=== PATIENT | female | born 1985 | race Two or more races ===

== ENCOUNTER → 2024-05-02 | Outpatient (CLI) | payer MEDICAID, SELFPAY ==
--- NOTE | 2024-05-02 13:15 | XR_ITS ---
Examination: Diagnostic digital mammography, bilateral Computer aided detection 3-D breast Tomosynthesis, bilateral Date and time of exam: May 02, 2024 1313 hours INDICATIONS: Left breast carcinoma diagnosis 2020 post lumpectomy radiation therapy chemotherapy Technique: Nonmagnified MLO, CC views of the breasts to been obtained, reconstructed from 3-D Tomosynthesis images. R2 computer aided detection program utilized for evaluation of suspicious masses and/or abnormal calcifications. 3-D Tomosynthesis images obtained. Findings: The breasts are heterogeneously dense, which may obscure small masses Surgical clips and scar formation upper outer left breast again noted Surgical clips upper outer right breast again depicted 5 mm nodule 12:00 position left breast posterior depth IMPRESSION: BI-RADS Category 0: Incomplete: Need additional imaging evaluation 5 mm nodule 12:00 position left breast posterior depth, recommend follow-up spot tomographic views of this nodule as well as bilateral breast sonography to complete the workup
== END | disposition home or self-care (01) ==
PROVIDERS: PCP Physician Assistant; Referring Provider Internal Medicine Hematology & Oncology; Visit Provider Internal Medicine Hematology & Oncology
DX: R92.8 Other abnormal and inconclusive findings on diagnostic imaging of breast (principal); N63.25 Unspecified lump in the left breast, overlapping quadrants; C50.412 Malignant neoplasm of upper-outer quadrant of left female breast
CPT/HCPCS: 77062; 77066; G0279

== ENCOUNTER → 2024-06-15 | Outpatient (CLI) | payer MEDICAID, SELFPAY ==
--- NOTE | 2024-06-15 10:15 | XR_ITS ---
Examination: Breast ultrasound complete, bilateral Date and time of exam: June 15, 2024 1015 hours INDICATIONS: Personal history breast cancer, postlumpectomy 2020, mammogram May 02, 2024 5 mm nodule 12:00 position left breast posterior depth Technique: Real-time grayscale ultrasonographic imaging bilateral breasts, including all 4 quadrants as well as nipple retroareolar and axillary regions. Findings: No cystic or solid mass involving either breast IMPRESSION: BI-RADS Category 1: Negative study
--- NOTE | 2024-06-15 11:15 | XR_ITS ---
Examination: Diagnostic digital mammography, unilateral, left Computer aided detection 3-D breast Tomosynthesis, unilateral Date and time of exam: June 15, 2024 1004 hours INDICATIONS: Mammogram 12/01/2023 5 mm nodule 12:00 position left breast Technique: Nonmagnified MLO, CC views of the left breast have been obtained, reconstructed from 3-D Tomosynthesis images. R2 computer aided detection program utilized for evaluation of suspicious masses and/or abnormal calcifications. 3-D Tomosynthesis images obtained. Findings: The breast is heterogeneously dense, which may obscure small masses Left breast sonogram today demonstrates no cystic or solid mass No suspicious mass is depicted on the spot compression views Impression: BI-RADS category 2: Benign findings Return to yearly follow-up mammography
== END | disposition home or self-care (01) ==
LOC: CDIM 09:55
PROVIDERS: PCP Family Medicine; Referring Provider Internal Medicine Hematology & Oncology; Visit Provider Internal Medicine Hematology & Oncology
DX: R92.322 Mammographic fibroglandular density, left breast (principal); Z85.3 Personal history of malignant neoplasm of breast
CPT/HCPCS: 76641; 77061; 77065; G0279

== ENCOUNTER → 2024-07-21 | Outpatient (CLI) | payer MEDICAID, SELFPAY ==
[2024-07-20 16:53] LABS: HCG Qualitative,Urine Negative
--- NOTE | 2024-07-21 14:00 | XR_ITS ---
Examination: CT chest with intravenous contrast CT abdomen with intravenous contrast CT pelvis with intravenous contrast 2-D coronal and sagittal reconstructions Time of exam: July 21, 2024 at 1424 hours INDICATIONS: Diagnosis malignant neoplasm upper outer quadrant left female breast, lumpectomy 2020, restaging CTDI: vol (mGy) : 5.09 DLP: (mGycm): 338 Technique: Multiple axial images of the chest, abdomen and pelvis with intravenous contrast, 3.0 mm slice thickness. Images obtained post intravenous injection Isovue 370 60 cc. 2-D sagittal and coronal reconstructions. Low dose protocols were performed. One or more of the following dose reduction techniques were used; automated exposure control, adjustment of the mA and/or KV according to patient size, use of iterative reconstruction technique. Findings: Left axillary surgical clips No thoracic aortic aneurysm dilatation Pulmonary artery segments are not enlarged No paratracheal tracheobronchial or bronchopulmonary adenopathy 3 mm, 2 mm pulmonary nodules anterior segment right upper lobe No pneumonia or pulmonary edema Surgical clips 8 mm left axillary lymph node No pneumonia or pulmonary edema No visualized liver or splenic lesion No gallstones No pancreatic or adrenal mass No renal or ureteral calculi No abdominal or pelvic lymphadenopathy Anteverted uterus Multiple left ovarian follicular cyst Urinary bladder intact Moderate osteopenia IMPRESSION: Subcentimeter noncalcified pulmonary nodules right upper lobe. With this study as baseline recommend continued 6 month follow-up CT chest without contrast
== END | disposition home or self-care (01) ==
PROVIDERS: Referring Provider Internal Medicine Hematology & Oncology; Visit Provider Internal Medicine Hematology & Oncology
DX: R91.8 Other nonspecific abnormal finding of lung field (principal); C50.412 Malignant neoplasm of upper-outer quadrant of left female breast; Z32.00 Encounter for pregnancy test, result unknown
CPT/HCPCS: 71260; 74177; 81025; A4649; Q9967